=== PATIENT | male | born 1975 | race Caucasian/White ===

== ENCOUNTER → 2024-01-29 14:29 | Outpatient (BNVA) | payer BC, MEDICAID, SELFPAY | PROVIDERS: Visit Provider Nurse Practitioner Family | DX: E11.9 Type 2 diabetes mellitus without complications (principal); E78.5 Hyperlipidemia, unspecified | CPT/HCPCS: 80053; 80061; 83036; 84443; 85025 ==

== ENCOUNTER 2024-05-20 13:56 | Outpatient (CLI) | payer MEDICARE, MEDICAID, SELFPAY ==
--- NOTE | 2024-05-20 14:03 | XR_ITS ---
WS: [id number] Left foot, 2 views, 05/20/2024 Clinical Data: left toe pain Comparison: None. Findings: No fractures or dislocations are seen. No bone destruction or erosion is noted. The joint spaces and soft tissues are normal. XR/XR foot LT 2V [id number] Impression: Negative left foot.
--- NOTE | 2024-05-20 14:03 | XR_ITS ---
WS: [id number] Cervical spine, 4 views, 05/20/2024 Clinical Data: left arm numbness Comparison: None. Findings: No compression fractures are seen. The disc heights are normal. There is no prevertebral so ft tissue swelling. The odontoid is unremarkable. The soft tissues of the neck and the lung apices ar e normal. XR/XR cervical spine 3V* [id number] Impression: Negative cervical spine.
== END 2024-05-20 13:57 | disposition home or self-care (01) ==
LOC: RAD 14:02
DX: M79.675 Pain in left toe(s) (principal); R20.0 Anesthesia of skin; E11.9 Type 2 diabetes mellitus without complications; E78.5 Hyperlipidemia, unspecified
CPT/HCPCS: 72040; 73620; 80053; 80061; 83036

== ENCOUNTER → 2024-08-19 13:37 | Outpatient (BNVA) | payer MEDICARE, MEDICAID, SELFPAY | DX: E11.9 Type 2 diabetes mellitus without complications (principal); E78.5 Hyperlipidemia, unspecified; M25.442 Effusion, left hand; M25.642 Stiffness of left hand, not elsewhere classified | CPT/HCPCS: 73130; 80053; 80061; 83036; 85025 ==

== ENCOUNTER → 2024-12-29 10:34 | Outpatient (BNVA) | payer MEDICARE, MEDICAID, SELFPAY | DX: E11.9 Type 2 diabetes mellitus without complications (principal) | CPT/HCPCS: 80053; 83036 ==